=== PATIENT | female | born 1945 | race Caucasian/White ===

== ENCOUNTER 2017-11-08 01:22 | Inpatient (IN) | payer OTHER, MEDICARE ==
[~2017-11-08] VITALS: Ht 162.6 cm; Wt 69.4 kg
[~2017-11-08 01:22] MED LIST: AMLODIPINE BESY1 CA3 PO; DIAZEPAM2 MG PO; LOTREL 10-40 M1 EACH PO; PAROXETINE20 MG PO; SIMVASTATIN20 MG PO; TYLENOL #31 TAB PO
--- NOTE | 2017-11-08 12:52 | Admission Core Measures ---
Acute Coronary Syndrome (CM) ACS Core Measures Acute Coronary Syndrome Diagnosis No Congestive Heart Failure (NEW) CHF Core Measures Congestive Heart Failure Diagnosis No Cerebrovascular Accident (NEW) CVA Core Measures CVA/TIA Diagnosis No Venous Thromboembolism VTE Core Jone (View Protocol) VTE Risk Factors Surgery No Mechanical VTE Prophylaxis d/t N/A MechProphylax Ordered No VTE Pharm Prophylaxis d/t NA PharmProphylax ordered Problem List As ranked by this Provider includes Assessment & Plan 1. Arthritis of right shoulder region HOME MEDS Home Med List Amlodipine Besylate/Benazepril (Lotrel 10-40 MG Capsule) 10 MG-40 MG CAPSULE 1 CAP PO DAILY BP (Reported) Diazepam 2 MG TAB 1 TAB PO PRN UNKNOWN (Reported) PAROXETINE HCL (Paroxetine) 20 MG TABLET 1 TAB PO QPM DEPRESSION (Reported) Simvastatin (Zocor) 20 MG TAB 1 TAB PO QPM CHOLESTEROL (Reported)
--- NOTE | 2017-11-08 16:24 | Operative Report ---
Operative/Inv Procedure Report Surgery Date: 11/08/17 Name of Procedure: Right reverse total shoulder arthroplasty Pre-Operative Diagnosis: Rotator cuff arthropathy right shoulder Post-Operative Diagnosis: Rotator cuff arthropathy right shoulder Estimated Blood Loss: 50ml to 100ml Surgeon/Webmaster: Reji SALAS,Kevyn Vazquez/Ba Jaramillo M.D. Anesthesia: general endotracheal tube Operative/Procedure Note Note: The patient was brought to the operating room after having a scalene block done in the holding area. She was given 2 g of Kefzol antibiotics. She was placed on the shoulder table and raise to about 45 angulation. Her head was well padded in the appropriate head silverman. The right shoulder was first cleansed with alcohol by myself and then formally prepped with ChloraPrep. The shoulder was then as mentioned prepped and draped in the usual sterile fashion. She was given a general anesthetic for this procedure. Incision ran from the coracoid laterally about 7-8 cm. This did follow the deltopectoral interval. Incision was made this was carried down to the deltopectoral interval. The cephalic vein was identified and retracted laterally. We then placed a self-retaining retractor. Using a Rees scissor we went above the coracoid and then placed a Hohmann retractor in that area. We then tagged the subscapularis. We tied off the humeral circumflex vessels with 2 sutures. We then took the subscap down starting right through the coracoacromial ligament at the rotator interval and then took the subscapularis down after it was tagged along the anatomic neck of the humerus. A capsular release was carried out at the inferior border of the humeral neck. A subscap release was then carried out releasing first the superior than the middle and inferior glenohumeral ligaments. The subscap was then placed into the subscapularis fossa. The humeral head was then dislocated with extension and external rotation. The appropriate head cutting guide was placed in the midportion in an anterior posterior direction and the humeral head cut was made.. We then found the canal finder and then used the appropriate sounders and then did the and into the appropriate broaches up to a size 3 be. The angle of this prosthesis was 132.5. We then put a cup protector on this broach. We then addressed the glenoid appropriate retractors were placed retracting the humeral head and shaft. We then cleared the glenoid of labrum and released the biceps and resected the proximal portion of the biceps. The rest of the biceps was later teen and East to the pectoralis major tendon. We then went ahead using the appropriate guide at 10 inferior tilt placed a guidewire in place. We then used cannulated reamers and then the peripheral reamer for the glenoid sphere. After completing glenoid preparation went ahead and drilled the central lug hole. We then placed the appropriate 25 mm baseplate this was noted to be right against the glenoid which was nice and flat from the reaming. We then placed 2 locking screws without locking them and then 2 compressive screws which we fully compressed the baseplate against the glenoid. Then went back and finally locked the 2 locking screws to fix this glenoid baseplate in place. Excellent bicortical fixation was noted. The glenoid sphere was then placed and locked into place. Thorough irrigation of that was carried out we then went back to the humeral stem we put a trial on the humeral stem with a 6 poly-reduce this there was no shuck good tension on the deltoid. This was then dislocated the trials removed. Thorough pulsed irrigation carried out. An went ahead and passed sutures through the bone proximally for subscap repair and through the stump of the remaining tendon. The prosthesis was then compiled on the back table. The sizes again were a IIIB stem 25 baseplate 4 appropriate screws of the appropriate length 2 locking to compression and a 36 mm glenoid sphere. The prosthesis was then seated after all sutures were passed through bone. Thorough irrigation was carried out the shoulder was reduced excellent fixation and excellent stability was noted. The subscap was repaired with thorough cord sutures 3 in total. Thorough irrigation was carried out the deltopectoral interval was closed with 0 suture. The subcutaneous tissues closed with 2-0 Vicryl. Skin closed with sanam. Dry sterile dressings were applied she was placed in the appropriate sling and taken to the recovery room in stable condition with no complications appropriate timeouts were done prior to procedure after the implants were placed. There were no complications and all instrument counts were correct. Thank you Dr. Mendoza dictating Dr. self was my clinical education assistant during this procedure which was very necessary during critical portions of the procedure.
--- NOTE | 2017-11-08 17:30 | Patient Discharge Instructions ---
Discharge Instructions General Discharge Information You were seen/treated for: Right shoulder pain related to arthritis You had these procedures: Reverse total shoulder replacement, right shoulder Watch for these problems: Increasing pain despite the use of pain medication. Increasing redness and swelling of right arm Loss of feeling or motor skills to right arm Drainage of any type from incision Fever greater than 101.5 Do not soak the wound: Yes Other wound care: Keep wound clean and dry Special Instructions: Please hold arm to your side. Avoid stretching right arm in front of you, to the side of you, across from you, and especially behind you. Diet Continue normal diet: Yes Recommended Diet: Regular Activity Full Activity/No Limits: No Activity Self Limited: Yes Pounds, do NOT lift more than: 2 Acute Coronary Syndrome Inclusion Criteria At DC or during hospital stay patient has or had the following: ACS DIAGNOSIS No Discharge Core Measures Meds if any: Prescribed or Continued at Discharge Meds if any: NOT Prescribed or Continued at Discharge Congestive Heart Failure Inclusion Criteria At DC or during hospital stay patient has or had the following: CHF DIAGNOSIS No Discharge Core Measures Meds if any: Prescribed or Continued at Discharge Meds if any: NOT Prescribed or Continued at Discharge Cerebrovascular accident Inclusion Criteria At DC or during hospital stay patient has or had the following: CVA/TIA Diagnosis No Discharge Core Measures Meds if any: Prescribed or Continued at Discharge Meds if any: NOT Prescribed or Continued at Discharge Venous thromboembolism Inclusion Criteria VTE Diagnosis No VTE Type NONE VTE Confirmed by (Test) NONE Discharge Core Measures - Per Current guidelines, there needs to be overlap - treatment for the first 5 days of Warfarin therapy. - If discharged on Warfarin prior to 5 days of - overlap therapy, the patient will need to be - assessed for post discharge needs including - *Post discharge parental anticoagulation - *Warfarin and/or parental anticoagulation education - *Follow up date to check INR post discharge At least 5 days overlap therapy as Inpatient No Meds if any: Prescribed or Continued at Discharge Note: Overlap Therapy is Warfarin and Anticoagulant Meds if any: NOT Prescribed or Continued at Discharge
[2017-11-08] MEDS ORDERED: PERCOCET 5-3251 EACH PO (17:31)
[2017-11-08] MEDS ORDERED: ASPIRIN EC325 M2 PO (17:31)
--- NOTE | 2017-11-08 17:39 | Surgical Discharge Summary ---
Visit Information Visit Dates Admission Date: 11/08/17 Discharge Date: 11/09/17 History of Present Illness Chief Complaint: Right shoulder pain related to unilateral primary osteoarthritis Surgical History Pertinent Surgical History: non-contributory Psychosocial History What is Your Primary Language? Malay Review of Systems: See H&P Hospital Course Course Attending Physician: Reji SALAS,Kevyn Vazquez Primary Care Physician: Roxie SALAS,Seth Norton [facility] Course: Jahaira was admitted to the hospital for an elective reverse right total shoulder arthroplasty. She tolerated the procedure well. Her diet was advanced and tolerated. She voided spontaneously. She was evaluated by PT and OT. At the time of hospital discharge, her neurovascular status was intact and her vital signs were stable and within normal limits. She was deemed appropriate for discharge. Allergies: Coded Allergies: No Known Allergies (11/03/17) Disposition Summary Disposition Principal Diagnosis: Right shoulder osteoarthritis Additional Diagnosis: None Discharge Disposition: home health services Discharge Instructions General Discharge Information Code Status: Full Code Patient's Diet: Regular, advance as tolerated Patient's Activity: Arm to remain at side, no extending in front, to the side, across or behind you. No external rotation. No lifting greater than 1-2 pounds until otherwise indicated by Dr. Mendoza Follow-Up Instructions/Appts: Follow up with Dr. Mendoza in 2 weeks from date of surgery Medications at Discharge Discharge Medications: Continue taking these medications: PAROXETINE HCL (Paroxetine) 20 MG TABLET 1 Tablet ORAL Every night Qty = 90 Diazepam (Diazepam) 2 MG TAB 1 Tablet ORAL as needed for UNKNOWN Qty = 90 Simvastatin (Zocor) 20 MG TAB 1 Tablet ORAL Every night Amlodipine Besylate/Benazepril (Lotrel 10-40 MG Capsule) 10 MG-40 MG CAPSULE 1 Capsule ORAL DAILY Start taking the following new medications: Aspirin (Ecotrin*) 325 MG TABLET. 1 Tablet ORAL TWICE DAILY Qty = 42 No Refills Oxycodone HCl/Acetaminophen (Percocet 5-325 MG Tablet) 5 MG-325 MG TABLET 1-2 Tablet ORAL EVERY 4-6 HOURS as needed for PAIN Qty = 36 No Refills
[2017-11-08 17:45] VITALS: BP 118/58
[2017-11-08 20:00] VITALS: BP 120/70
--- NOTE | 2017-11-08 21:29 | PN- Orthopedic ---
Subjective Subjective: POST-OP CHECK PT SITTING IN BED, FEELS TIRED, SOME RIGHT SHOULDER PAIN. HAD CLEARS WITHOUT NAUSEA. HAS NOT VOIDED YET. NO NUMBNESS BUT HAS TINGLING IN RIGHT THUMB DENIES CP/SOB Objective Vital Signs and I&Os Vital Signs Date Time Temp Pulse Resp B/P B/P Pulse O2 O2 Flow FiO2 Mean Ox Delivery Rate 11/08 1999 95.8 68 20 120/70 96 11/08 1800 93 Nasal 2.0L Cannula 11/08 1745 97.8 58 18 118/58 92 Nasal 2.0L Cannula Physical Exam: GEN-NAD RESP-CLEAR CARDIO-RRR ABD- ND,SOFT, NT EXT- RIGHT SHOULDER DRESSING CLEAN AND DRY, DISTAL SENSORY AND MOTOR FUNCTION INTACT, TINGLING SENSATION IN RIGHT THUMB. 2+ RIGHT RADIAL PULSE. Assessment/Plan Assessment/Plan 72YO F SP RIGHT REVERSE TOTAL SHOULDER REPLACEMENT POD0. STABLE LIMIT NARCOTICS ENCOURAGE AMBULATION, DUE TO VOID ENCOURAGE IS REG DIET REG HOME MEDS DVT PPX ASA AND ALPS Core Measures Venous Thromboembolism VTE Risk Factors Surgery No Mechanical VTE Prophylaxis d/t N/A MechProphylax Ordered No VTE Pharm Prophylaxis d/t NA PharmProphylax ordered
[2017-11-08 22:29] VITALS: BP 100/60
[2017-11-09 02:02] VITALS: BP 114/62
[2017-11-09 06:00] VITALS: BP 126/70
[2017-11-09 08:30] LABS: ABSOLUTE BASOPHIL COUNT 0 /CUMM (0.0-0.2); ABSOLUTE EOSINOPHIL COUNT 0 /CUMM (0.0-0.7); ABSOLUTE GRANULOCYTE CT 11.9 /CUMM (1.4-6.5); ABSOLUTE LYMPH COUNT 0.7 /CUMM (1.2-3.4); ABSOLUTE MONOCYTE COUNT 0.7 /CUMM (0.10-0.60); BASOPHIL % 0.1 % (0.0-2.0); EOSINOPHIL % 0 % (0-5); HEMATOCRIT 35.1 % (37-47); MEAN CORPUSCULAR HGB 31.5 PG (27.0-31.0); MEAN CORPUSCULAR HGB CONC 33.3 G/DL (33.0-37.0); MEAN CORPUSCULAR VOLUME 94.5 FL (81.0-99.0); MEAN PLATELET VOLUME 10.6 FL (7.4-10.4); PLATELET COUNT 239 /CUMM (130-400); RBC DISTRIBUTION WIDTH 12.9 % (11.5-14.5); RED BLOOD CELL CT 3.72 /CUMM (4.20-5.40); WHITE BLOOD CELL COUNT 13.3 /CUMM (4.8-10.8)
--- NOTE | 2017-11-09 08:36 | PN- Orthopedic ---
Subjective Subjective: pod#1 s/p right reverse tsa no major issue overnight deneis cp, sob, no n+v with diet has not void urine post op but denies low abd discomfort/pain Objective Vital Signs and I&Os Vital Signs Date Time Temp Pulse Resp B/P B/P Pulse O2 O2 Flow FiO2 Mean Ox Delivery Rate 11/09 0600 98.4 80 18 126/70 91 Room Air 11/09 0202 97.8 73 18 114/62 91 Nasal Cannula 11/09 0000 93 Nasal 2.0L Cannula 11/08 2229 96.5 63 20 100/60 93 11/08 2000 95.8 68 20 120/70 96 11/08 1800 93 Nasal 2.0L Cannula 11/08 1745 97.8 58 18 118/58 92 Nasal 2.0L Cannula Intake & Output 11/09 1600 11/09 0800 11/09 0000 11/08 1600 11/08 0800 11/08 0000 Intake Total 300 Output Total 60 Balance 240 Intake, IV 300 Output, 60 Emesis Patient 153 lb Weight Weight Estimated Measurement Method Physical Exam: cv: rrr lungs: clear abd: soft, +bs no tenderness to bladder palp or distention ext: right ue - distal cms intact drsg dry gu: dtv post op Assessment/Plan Assessment/Plan ortho stable plan oob ambulate encourage ivf probable d/c later today Core Measures Venous Thromboembolism VTE Risk Factors Surgery No Mechanical VTE Prophylaxis d/t N/A MechProphylax Ordered No VTE Pharm Prophylaxis d/t NA PharmProphylax ordered
[2017-11-09 09:38] LABS: GRANULOCYTE % 89.4 % (42.2-75.2)
[2017-11-09 10:00] VITALS: BP 142/48
[2017-11-09] MEDS ORDERED: PERCOCET 5-3251 EACH PO (11:05)
[2017-11-09] MEDS ORDERED: ASPIRIN EC325 M2 PO (11:05)
[2017-11-09 14:46] VITALS: BP 112/64
--- NOTE | 2017-11-09 15:31 | Event Note ---
Event Note Event Note: Called by RN re: decreased o2sat to mid-80s, placed on 3L NC. Assessed at bedside. Denies SOB, CP, palps, diziness. Does complain of anxiety and surgical shoulder pain. gen- nad card- s1s2 RRR Pulm- CTAB pulse ox checked by me at bedside. 94% at rest on 3L NC NC removed, deep breathing encouraged. 95% on RA, maintained during conversation. Pt admits to feeling stressed when using IST, and not taking deep breaths due to pain. Just had pain med, feeling better. Has not been taking her home anxiety med while inpt either. Ordered now. Pt OK to dc home. Encouraged to continue to do deep breathing exercises at home.
[2017-11-10] MEDS ORDERED: SIMVASTATIN20 M2 PO (22:28)
[2017-11-10] MEDS ORDERED: MULTIVITAMINS1 EAC9 PO (22:29)
[2017-11-10] MEDS ORDERED: DIAZEPAM2 M1 PO (22:29)
[2017-11-10] MEDS ORDERED: PAROXETINE HCL20 M1 PO (22:29)
[2017-11-10] MEDS ORDERED: CALCIUM 500 +1 EAC5 PO (22:30)
[2017-11-10] MEDS ORDERED: FISH OIL 1,0001 EAC5 PO (22:30)
[2017-11-10] MEDS ORDERED: ALEVE220 M1 PO (22:31)
[2017-11-11] MEDS ORDERED: ELIQUIS5 M1 PO (13:43)
== END 2017-11-09 16:30 | disposition home health service (06) | DRG 483 ==
LOC: 2NA 01:22 → SDA 01:22 → ENRESERV 16:45 → ENTRNSPT 17:04 → EDTRNSPTSTS 17:17 → EDTRNSPT 17:17 → 2NA 17:27 → CMPTRNSPT 17:36 → ENPENDDIS 11-09 11:09 → ENTRNSPT 11-09 15:47 → 2NA 11-09 16:30 → CMPTRNSPT 11-09 16:32
PROVIDERS: Nurse Practitioner
PROC: 3E0T3BZ Introduction of Anesthetic Agent into Peripheral Nerves and Plexi, Percutaneous Approach (ICD-10-PCS; principal; 2017-11-08)
PROC: 0RRJ00Z Replacement of Right Shoulder Joint with Reverse Ball and Socket Synthetic Substitute, Open Approach (ICD-10-PCS; principal; 2017-11-08)
DX: M19.011 Primary osteoarthritis, right shoulder (principal); R13.10 Dysphagia, unspecified; E78.5 Hyperlipidemia, unspecified; I10 Essential (primary) hypertension; F32.9 Major depressive disorder, single episode, unspecified; Z85.820 Personal history of malignant melanoma of skin
CPT/HCPCS: 2NASP; 36415; 36592; 82436; 97116-GO; 97161-GP; 97165-GO; 97530-GO; J0131; J0690; J1100; J2405; J2550